=== PATIENT | male | born 1975 | race Hispanic/Latino ===

== ENCOUNTER 2018-02-02 07:07 | Emergency (ER) | payer SELFPAY ==
[2018-02-02 07:57] LABS: #Eosinphils 0.1 thou/uL (0.0-0.7); #Lymphocytes 2.5 thou/uL (1.20-3.40); #Monocytes 0.6 thou/uL (0.11-0.59); #Neutrophils 2.8 thou/uL (1.40-6.50); %Basophils 0.5 % (0.0-1.0); %Eosinophils 2.3 % (0.0-10.0); %Lymphocytes 41.2 % (21.0-51.0); %Monocytes 9.1 % (0.0-10.0); %Neutrophils 46.9 % (42.0-75.0); Hemoglobin 14.5 g/dL (14.0-18.0); Mean Corpuscular Volume 90.8 fL (78.0-98.0); Mean Platelet Volume 9.9 fL (7.4-10.4); Platelet Count 182 thou/uL (130-400); RBC Distribution Width 11.3 % (11.5-14.5); Red Blood Cell (RBC) Count 4.83 mill/uL (4.70-6.10)
[2018-02-02 08:02] LABS: Bilirubin Negative (Negative); Blood, Urine Large (Negative); Clarity CLEAR (Clear); Glucose, Urine (Dipstick) Negative (Negative); Leukocyte Negative (Negative); Nitrite Negative (Negative); Protein, Urine (Dipstick) Negative (Neg-Trace); Specific Gravity, Urine 1.029 (1.002-1.036); Urobilinogen 0.2 mg/dL (0.2-1.0); pH, Urine 5.5 (5.0-9.0)
[2018-02-02 08:07] LABS: Bacteria/HPF None Seen HPF (None Seen); Hyaline Casts/LPF 0-3 HYALINE CAST LPF (0-3 Hyaline); Pathc Cast-AUWi Flag 0.43 (0-2.49); Squamous Epithelial 0-3 HPF (0-3); WBC/HPF 0-3 HPF (0-3)
[2018-02-02 08:17] LABS: ALT (SGPT) 55 U/L (8-55); AST (SGOT) 34 U/L (5-34); Albumin 4.1 g/dL (3.5-5.0); Alkaline Phosphatase 104 U/L (40-150); Anion Gap 11 mmol/L (10-20); BUN (Urea Nitrogen) 16 mg/dL (8.9-20.6); Bilirubin, Total 0.6 mg/dL (0.2-1.2); Calc. Creatinine Clearance 0 mL/min (70-130); Calcium 9.5 mg/dL (7.8-10.44); Carbon Dioxide 29 mmol/L (22-29); Chloride 104 mmol/L (98-107); Estimated GFR-MDRD Greater than 90; Globulin 2.9 g/dL (2.4-3.5); Glucose 110 mg/dL (70-105); Potassium 3.9 mmol/L (3.5-5.1); Sodium 140 mmol/L (136-145)
--- NOTE | 2018-02-02 10:09 | CT ---
CT ABDOMEN AND PELVIS WITHOUT CONTRAST: Technique: Multiple axial tomograms were obtained through the abdomen and pelvis without IV enhanceme nt. Indications: Abdominal pain. FINDINGS: The lung bases appear clear with mild posterior atelectasis. The liver, spleen, and pancreas are unremarkable. Adrenal glands normal. There is mild left perinephric stranding and mild left perinephric edema. There is mild left hydronep hrosis. Mild dilatation of the left ureter. There is an obstructing calculus in the distal left urete r just proximal to the UVJ. This obstructing calculus measures approximately 5 mm in coronal projecti on. The right kidney and right collecting structures unremarkable. The bladder is contracted with a Kang catheter in place. The bowel loops appear normal. Appendix appears normal. Colon unremarkable. Left colon is nondistende d and not accurately evaluated. Aorta normal caliber. No adenopathy. Osseous structures unremarkable. IMPRESSION: 5 mm obstructing calculus in the distal left ureter producing mild left hydronephrosis and left perin ephric edema. POS: BEL
[2018-02-02] MEDS ORDERED: Morphine 4 MG/ML VIAL ONE (10:12)
[2018-02-02] MEDS ORDERED: Ketorolac Tromethamine 30 MG/ML VIAL ONE (10:12)
[2018-02-02] MEDS ORDERED: ISOVUE-370 76%-LOCM 1 ML ONE (13:57)
== END 2018-02-02 11:46 | disposition home or self-care (01) ==
LOC: ERS 07:07
DX: N13.2 Hydronephrosis with renal and ureteral calculous obstruction (principal); E87.1 Hypo-osmolality and hyponatremia; E78.5 Hyperlipidemia, unspecified; Z79.899 Other long term (current) drug therapy
CPT/HCPCS: 36415; 51702; 74177; 80053; 81003; 81015; 85025; 87086; 96361; 96374; 96375; J1885; J2270

== ENCOUNTER 2018-02-03 12:15 | Emergency (ER) | payer SELFPAY ==
[2018-02-03] MEDS ORDERED: Ketorolac Tromethamine 60 MG/2 ML VIAL ONE (12:44)
[2018-02-03] MEDS ORDERED: Acetaminophen/Codeine 30-300mg Tablet ONE (13:21)
== END 2018-02-03 14:22 | disposition home or self-care (01) ==
LOC: ERS 12:15
DX: N20.0 Calculus of kidney (principal)
CPT/HCPCS: 96372; J1885

== ENCOUNTER 2021-02-24 17:35 | Emergency (ER) | payer SELFPAY ==
[2021-02-24] MEDS ORDERED: Acetaminophen 500 MG TAB ONE ×2 (18:07→18:09)
[2021-02-24] MEDS ORDERED: Ketorolac Tromethamine 30 MG/ML VIAL ONE (18:07)
[2021-02-24 18:44] LABS: #Lymphocytes 0.7 thou/uL (1.20-3.40); #Monocytes 0.4 thou/uL (0.11-0.59); #Neutrophils 3.5 thou/uL (1.40-6.50); %Basophils 0.3 % (0.0-1.0); %Eosinophils 0.1 % (0.0-10.0); %Lymphocytes 15.5 % (21.0-51.0); %Monocytes 9.5 % (0.0-10.0); %Neutrophils 74.6 % (42.0-75.0); Hemoglobin 14.7 g/dL (14.0-18.0); Mean Corpuscular HGB CONC 33.8 g/dL (32.0-36.0); Mean Corpuscular Hemoglobin 30.3 pg (27.0-31.0); Mean Corpuscular Volume 89.7 fL (78.0-98.0); RBC Distribution Width 11.4 % (11.5-14.5); Red Blood Cell (RBC) Count 4.87 mill/uL (4.70-6.10); White Blood Cell (WBC) Count 4.7 thou/uL (4.8-10.8)
[2021-02-24 18:59] LABS: ALT (SGPT) 116 U/L (8-55); AST (SGOT) 140 U/L (5-34); Albumin 3.6 g/dL (3.5-5.0); Alkaline Phosphatase 77 U/L (40-110); Anion Gap 12 mmol/L (10-20); BUN (Urea Nitrogen) 9 mg/dL (8.9-20.6); Bilirubin, Total 0.5 mg/dL (0.2-1.2); Calc. Creatinine Clearance 0 mL/min (70-130); Calcium 8.5 mg/dL (7.8-10.44); Carbon Dioxide 24 mmol/L (22-29); Chloride 98 mmol/L (98-107); Globulin 3.3 g/dL (2.4-3.5); Glucose 121 mg/dL (70-105); Potassium 3.7 mmol/L (3.5-5.1); Protein, Total 6.9 g/dL (6.0-8.3); Sodium 130 mmol/L (136-145)
[2021-02-24 19:18] LABS: Mean Platelet Volume 9.5 fL (7.4-10.4); Platelet Count 119 thou/uL (130-400); Platelet Morphology Comment Appears Decreased; RBC Morphology Normal
== END 2021-02-24 20:24 | disposition home or self-care (01) ==
LOC: ERS 17:35
DX: U07.1 COVID-19 (principal); J12.82 Pneumonia due to coronavirus disease 2019; E78.5 Hyperlipidemia, unspecified; E78.1 Pure hyperglyceridemia
CPT/HCPCS: 71045; 80053; 84484; 85025; 93005; 96374; J1885

== ENCOUNTER 2021-02-26 10:15 | Emergency (ER) | payer SELFPAY ==
[2021-02-26 11:39] LABS: #Lymphocytes 0.6 thou/uL (1.20-3.40); #Monocytes 0.5 thou/uL (0.11-0.59); %Basophils 0.5 % (0.0-1.0); %Lymphocytes 7.2 % (21.0-51.0); %Monocytes 5.6 % (0.0-10.0); %Neutrophils 86.7 % (42.0-75.0); Hemoglobin 14.9 g/dL (14.0-18.0); Mean Corpuscular HGB CONC 32.9 g/dL (32.0-36.0); Mean Corpuscular Hemoglobin 29.6 pg (27.0-31.0); Mean Corpuscular Volume 90.2 fL (78.0-98.0); Platelet Count 159 thou/uL (130-400); RBC Distribution Width 11.5 % (11.5-14.5); Red Blood Cell (RBC) Count 5.04 mill/uL (4.70-6.10); White Blood Cell (WBC) Count 8.1 thou/uL (4.8-10.8)
[2021-02-26 12:01] LABS: ALT (SGPT) 97 U/L (8-55); AST (SGOT) 121 U/L (5-34); Albumin 3.4 g/dL (3.5-5.0); Alkaline Phosphatase 89 U/L (40-110); Anion Gap 13 mmol/L (10-20); BUN (Urea Nitrogen) 6 mg/dL (8.9-20.6); Bilirubin, Total 0.5 mg/dL (0.2-1.2); Calc. Creatinine Clearance 0 mL/min (70-130); Calcium 8.2 mg/dL (7.8-10.44); Carbon Dioxide 26 mmol/L (22-29); Chloride 97 mmol/L (98-107); Globulin 3.4 g/dL (2.4-3.5); Glucose 120 mg/dL (70-105); Potassium 3.9 mmol/L (3.5-5.1); Protein, Total 6.8 g/dL (6.0-8.3); Sodium 132 mmol/L (136-145)
== END 2021-02-26 12:53 | disposition home or self-care (01) ==
LOC: ERS 10:15
DX: U07.1 COVID-19 (principal); E78.5 Hyperlipidemia, unspecified; E78.1 Pure hyperglyceridemia
CPT/HCPCS: 36415; 71045; 80053; 85025

== ENCOUNTER 2021-10-25 17:31 | Emergency (ER) | payer OTHER, SELFPAY ==
[2021-10-25] MEDS ORDERED: Acetaminophen 500 MG TAB ONE (19:21)
== END 2021-10-25 19:34 | disposition home or self-care (01) ==
LOC: ERS 17:31
DX: S09.90XA Unspecified injury of head, initial encounter (principal); S00.03XA Contusion of scalp, initial encounter; W18.39XA Other fall on same level, initial encounter; W22.8XXA Striking against or struck by other objects, initial encounter; E78.5 Hyperlipidemia, unspecified; E78.1 Pure hyperglyceridemia
CPT/HCPCS: 70450; 70486

== ENCOUNTER 2021-12-26 16:42 | Emergency (ER) | payer SELFPAY ==
[2021-12-26] MEDS ORDERED: Fluorescein Opthalmic Strip ONE (17:04)
[2021-12-26] MEDS ORDERED: Proparacaine 0.5% Opth 15 ML BOT ONE (17:04)
== END 2021-12-26 18:45 | disposition home or self-care (01) ==
LOC: ERS 16:42
DX: S05.02XA Injury of conjunctiva and corneal abrasion without foreign body, left eye, initial encounter (principal); E78.00 Pure hypercholesterolemia, unspecified; W29.3XXA Contact with powered garden and outdoor hand tools and machinery, initial encounter
CPT/HCPCS: 99283

== ENCOUNTER 2024-02-06 09:03 | Emergency (ER) | payer SELFPAY | END 2024-02-06 10:31 | disposition home or self-care (01) | LOC: ERS 09:03 | DX: M25.562 Pain in left knee (principal); I10 Essential (primary) hypertension; W18.42XA Slipping, tripping and stumbling without falling due to stepping into hole or opening, initial encounter | CPT/HCPCS: 99283 ==

== ENCOUNTER 2024-03-29 14:04 | Emergency (ER) | payer SELFPAY ==
[2024-03-29] MEDS ORDERED: Ketorolac Tromethamine 30 MG (1 mL) VIAL ONE (14:41)
== END 2024-03-29 15:50 | disposition home or self-care (01) ==
LOC: ERS 14:04
DX: M25.562 Pain in left knee (principal)
CPT/HCPCS: 96372; 99283; J1885